=== PATIENT | female | born 1945 | race Caucasian/White ===

== ENCOUNTER → 2020-08-25 09:27 | Outpatient (BNVA) | payer MEDICARE, SELFPAY | PROVIDERS: PCP Internal Medicine; Referring Provider Internal Medicine; Visit Provider Psychiatry & Neurology Neurology | DX: G20 Parkinson's disease (principal); K59.00 Constipation, unspecified; R49.8 Other voice and resonance disorders; R13.10 Dysphagia, unspecified; I10 Essential (primary) hypertension | CPT/HCPCS: 99204 ==

== ENCOUNTER → 2021-02-16 14:33 | Outpatient (BNVA) | payer MEDICARE, SELFPAY | PROVIDERS: PCP Internal Medicine; Referring Provider Internal Medicine; Visit Provider Psychiatry & Neurology Neurology | DX: G20 Parkinson's disease (principal); K59.00 Constipation, unspecified; R49.8 Other voice and resonance disorders; R13.10 Dysphagia, unspecified | CPT/HCPCS: 99213 ==

== ENCOUNTER → 2021-08-15 10:34 | Outpatient (BNVA) | payer MEDICARE, MEDICAID, SELFPAY | PROVIDERS: PCP Internal Medicine; Referring Provider Internal Medicine; Visit Provider Psychiatry & Neurology Neurology | DX: G20 Parkinson's disease (principal); K59.00 Constipation, unspecified; R49.8 Other voice and resonance disorders; R13.10 Dysphagia, unspecified | CPT/HCPCS: 99213 ==

== ENCOUNTER → 2022-02-13 10:49 | Outpatient (BNVA) | payer MEDICARE, MEDICAID, SELFPAY | PROVIDERS: PCP Internal Medicine; Referring Provider Internal Medicine; Visit Provider Psychiatry & Neurology Neurology | DX: G20 Parkinson's disease (principal); K59.00 Constipation, unspecified; R49.8 Other voice and resonance disorders; R13.10 Dysphagia, unspecified | CPT/HCPCS: 99213 ==

== ENCOUNTER → 2022-08-14 12:53 | Outpatient (BNVA) | payer MEDICARE, MEDICAID, SELFPAY | PROVIDERS: PCP Internal Medicine; Referring Provider Internal Medicine; Visit Provider Psychiatry & Neurology Neurology | DX: I10 Essential (primary) hypertension (principal); G20 Parkinson's disease; K59.00 Constipation, unspecified | CPT/HCPCS: 99213 ==

== ENCOUNTER → 2023-02-12 10:33 | Outpatient (BNVA) | payer MEDICARE, MEDICAID, SELFPAY | PROVIDERS: PCP Internal Medicine; Referring Provider Internal Medicine; Visit Provider Psychiatry & Neurology Neurology | DX: G20 Parkinson's disease (principal); K59.00 Constipation, unspecified; R49.8 Other voice and resonance disorders; R13.10 Dysphagia, unspecified | CPT/HCPCS: 99213 ==

== ENCOUNTER → 2023-08-13 10:36 | Outpatient (BNVA) | payer MEDICARE, MEDICAID, SELFPAY | PROVIDERS: PCP Internal Medicine; Referring Provider Internal Medicine; Visit Provider Psychiatry & Neurology Neurology | DX: K59.00 Constipation, unspecified (principal); R49.8 Other voice and resonance disorders; R13.10 Dysphagia, unspecified; I10 Essential (primary) hypertension; G20.A1 Parkinson's disease without dyskinesia, without mention of fluctuations | CPT/HCPCS: 99213 ==

== ENCOUNTER → 2024-02-11 10:47 | Outpatient (BNVA) | payer MEDICARE, SELFPAY | PROVIDERS: PCP Internal Medicine; Referring Provider Internal Medicine; Visit Provider Psychiatry & Neurology Neurology | DX: K59.00 Constipation, unspecified (principal); R49.8 Other voice and resonance disorders; R13.10 Dysphagia, unspecified | CPT/HCPCS: 99214 ==

== ENCOUNTER → 2024-08-11 09:49 | Outpatient (BNVA) | payer MEDICARE, SELFPAY | PROVIDERS: PCP Family Medicine; Referring Provider Family Medicine; Visit Provider Psychiatry & Neurology Neurology | DX: G20.C Parkinsonism, unspecified (principal); R49.8 Other voice and resonance disorders | CPT/HCPCS: 99213 ==

== ENCOUNTER → 2025-02-10 09:52 | Outpatient (BNVA) | payer MEDICARE, SELFPAY | PROVIDERS: PCP Family Medicine; Referring Provider Family Medicine; Visit Provider Psychiatry & Neurology Neurology | DX: G20.C Parkinsonism, unspecified (principal); K59.00 Constipation, unspecified; R49.8 Other voice and resonance disorders; R13.10 Dysphagia, unspecified | CPT/HCPCS: 99214 ==

== ENCOUNTER → 2025-07-14 08:51 | Outpatient (BNVA) | payer MEDICARE, SELFPAY | PROVIDERS: PCP Family Medicine; Referring Provider Family Medicine; Visit Provider Psychiatry & Neurology Neurology | DX: G20.C Parkinsonism, unspecified (principal); K59.00 Constipation, unspecified; R49.8 Other voice and resonance disorders; R13.10 Dysphagia, unspecified; I10 Essential (primary) hypertension; I73.00 Raynaud's syndrome without gangrene | CPT/HCPCS: 99214 ==